=== PATIENT | female | born 1960 | race Two or more races ===

== ENCOUNTER 2016-06-17 07:31 | Day surgery (SDC) | payer OTHER ==
[2016-06-14 13:39] VITALS: BMI 29.1
[~2016-06-17] VITALS: Ht 157.5 cm; Wt 71.6 kg
[2016-06-17] VITALS (8 sets, daily range): BP systolic 129–147; BP diastolic 66–73; PULSE 73–106; RESP 15–23; Ht 157.5 cm; Wt 71.6 kg
[~2016-06-17 07:31] MED LIST: TYLENOL PRN
[2016-06-17] MEDS ORDERED: CEFAZOLIN 2 GM/50 ML (PMX) 50 ML IVPB ONE (09:00)
[2016-06-17] MEDS ORDERED: SOD CHLORIDE 0.9% 1,000 ML IV ONE (09:00)
--- NOTE | 2016-06-17 09:31 | RADRPT ---
PROCEDURE: XR Chest. CLINICAL INDICATION: Preoperative for breast biopsy. TECHNIQUE: Single frontal view. COMPARISON: None. FINDINGS: The lungs are clear. The heart size is normal. There is no pleural effusion or pneumothorax. A guide wire is present in the left breast. IMPRESSION: 1. Guide wire in the left breast. 2. Otherwise normal chest x-ray. RPTAT: QQ .Edson Hwang MD, MD Date Time Electronically viewed and signed by .Edson Hwang MD, MD on 06/17/2016 09:30 .R/
[2016-06-17 09:45] LABS: ADD SCAN DIFF NO
[2016-06-17 09:51] LABS: BASOPHILS % 0.4 % (0.0-2.0); EOSINOPHILS # 0.1 10^3/ul (0.0-0.5); EOSINOPHILS % 1.1 % (0.0-7.0); HEMATOCRIT 40.3 % (37.0-47.0); HEMOGLOBIN 13.5 g/dl (12.0-16.0); LYMPHOCYTES # 1.7 10^3/ul (0.8-2.9); LYMPHOCYTES % 30.7 % (15.0-51.0); MEAN CORPUSCULAR HEMOGLOBIN 30.4 pg (29.0-33.0); MEAN CORPUSCULAR HGB CONC 33.5 g/dl (32.0-37.0); MEAN CORPUSCULAR VOLUME 90.8 fl (82.0-101.0); MONOCYTE # 0.4 10^3/ul (0.3-0.9); MONOCYTES % 6.3 % (0.0-11.0); NEUTROPHIL # 3.4 10^3/ul (1.6-7.5); NEUTROPHILS % 61.3 % (39.0-77.0); PLATELET COUNT 171 10^3/UL (140-415); RED BLOOD COUNT 4.44 10^6/ul (4.20-5.40); RED CELL DISTRIBUTION WIDTH 11.8 % (11.5-14.5); WHITE BLOOD COUNT 5.6 10^3/ul (4.8-10.8)
[2016-06-17 10:02] LABS: INR 0.86; PROTIME 11.7 Sec (12.2-14.2); PT RATIO 0.9
[2016-06-17 10:03] LABS: PARTIAL THROMBOPLASTIN TIME 26.4 Sec (25.0-35.0)
[2016-06-17 10:05] LABS: CREATININE 0.45 mg/dl (0.44-1.00); POTASSIUM 4.3 mmol/L (3.5-5.1)
[2016-06-17 10:06] LABS: CALCIUM 9.4 mg/dl (8.4-10.2)
[2016-06-17] MEDS ORDERED: METF-382 PO (10:09)
[2016-06-17] MEDS ORDERED: LISI-313 PO (10:09)
[2016-06-17] MEDS ORDERED: FENTAnyl 50 MCG/ML VIAL ONE (11:11)
[2016-06-17] MEDS ORDERED: MIDAZOLAM 1 MG/ML 2 ML INJ ONE (11:11)
[2016-06-17] MEDS ORDERED: HYDROCODONE/APAP (7.5/325) TAB PO PRN (11:30)
[2016-06-17] MEDS ORDERED: HYDROmorphONE (0.2 MG/ML) 10ML SYG IV PRN ×2 (12:00)
[2016-06-17] MEDS ORDERED: ONDANSETRON 4 MG INJ IV PRN (12:00)
[2016-06-17] MEDS ORDERED: DIPHENHYDRAMINE 50 MG INJ IV PRN (12:00)
[2016-06-17] MEDS ORDERED: MEPERIDINE 25 MG INJ IV PRN (12:00)
[2016-06-17] MEDS ORDERED: FENTAnyl 50 MCG/ML VIAL IV PRN (12:00)
[2016-06-17] MEDS ORDERED: PROPOFOL 20 ML ONE (12:04)
[2016-06-17] MEDS ORDERED: LIDOCAINE 2% (SDV) 5 ML INJ ONE (12:04)
[2016-06-17] MEDS ORDERED: CEFAZOLIN 1 GM INJ ONE (12:04)
[2016-06-17] MEDS ORDERED: ONDANSETRON 4 MG INJ ONE (12:04)
--- NOTE | 2016-06-17 15:27 | OPR ---
DATE OF OPERATION: 06/17/2016 PREOPERATIVE DIAGNOSIS: Microcalcifications, left breast. POSTOPERATIVE DIAGNOSIS: Microcalcifications, left breast. OPERATION PERFORMED: Left needle-directed excisional biopsy. ANESTHESIA: General. ANESTHESIOLOGIST: Vinh Orosco MD. SURGEON: Clint Nevarez MD. INDICATIONS FOR PROCEDURE: The patient is a 56-year-old female who underwent surveillance mammograp hy and was found to have suspicious microcalcifications in her left breast. Core biopsy was nondiag nostic and radiologist recommended needle-directed excisional biopsy. The patient consented and was scheduled for surgery. DESCRIPTION OF PROCEDURE: On the morning of surgery, the patient presented to [facility] and underwent localization of the lesion performed by attending radiologist, Dr. Janina Escamilla. Subsequently, she was brought to the operating theater, placed under general endotracheal tube anesthesia. The left breast was prepped and draped in usual sterile fashion. The localization wire was in the upper outer quadrant of the breast. A curvilinear incision was made i n this region. With a 15 blade scalpel, subcutaneous tissue was dissected with cautery. Skin edge s were then elevated with skin hooks and wide circumferential dissection of the tissue associated wi th the wire took place, taking great care to ensure adequate margin. Specimen was removed, oriented and sent for radiographic confirmation of capture. Capture was confirmed. The specimen was then s ent for permanent pathologic analysis. Wound was irrigated. Minimal bleeding was controlled with c autery. The skin edges were then reapproximated using 5-0 Vicryl suture in subcuticular fashion. D ermabond was then applied. Patient tolerated procedure well. Estimated blood loss was 10 mL. Ther e were no complications and the patient was transported in stable condition to the recovery room whe re circumferential compression dressing was applied. Dictated By: CLINT NEVAREZ MD TL/VICTORINO Conf#: [id number] DID#: [id number]
--- NOTE | 2016-06-21 15:12 | RADRPT ---
Vent Rate: 59 bpm RR Interval: 0 msec NC Interval: 138 msec QRS Duration: 84 msec QT Interval: 450 msec QTC Interval: 445 msec P-R-T [place]: 55 - 47 - 45 degrees Sinus bradycardia Otherwise normal ECG Electronically Signed By: Matt Tafoya [id number]
== END 2016-06-17 13:40 | disposition home or self-care (01) ==
LOC: SDS 07:31
PROVIDERS: ATTEND Surgery Surgical Oncology
DX: R92.0 Mammographic microcalcification found on diagnostic imaging of breast (principal); I10 Essential (primary) hypertension; E11.9 Type 2 diabetes mellitus without complications
CPT/HCPCS: 19120; 71010; 80048; 82962; 85025; 85610; 85730; 88307; 93005; J0690; J2250; J2405; J3010